=== PATIENT | female | born 1995 | race Caucasian/White ===

== ENCOUNTER → 2023-07-06 09:47 | Outpatient (REF) | payer BC, SELFPAY | LOC: RCS 09:47 | PROVIDERS: ATTENDING PHYSICIAN Internal Medicine Cardiovascular Disease; FAMILY PHYSICIAN Emergency Medicine | DX: R55 Syncope and collapse (principal) | CPT/HCPCS: 93225; 93226 ==

== ENCOUNTER → 2023-07-15 14:36 | Outpatient (REF) | payer BC, SELFPAY | LOC: DHCBC MAIN 14:36 | PROVIDERS: ATTENDING PHYSICIAN Internal Medicine Cardiovascular Disease; FAMILY PHYSICIAN Emergency Medicine | DX: R55 Syncope and collapse (principal) | CPT/HCPCS: 93306 ==